=== PATIENT | female | born 1950 | race Caucasian/White ===

== ENCOUNTER 2018-12-04 12:11 | Emergency (ER) | payer MEDICARE, OTHER, SELFPAY ==
[2018-12-04 12:14] VITALS: BP 160/85; PULSE 63; RESP 18; TEMP 36.6; O2SAT 98; BMI 23.8
--- NOTE | 2018-12-04 12:27 | CT_ITS ---
STUDY: CT ABDOMEN AND PELVIS WITHOUT CONTRAST REASON FOR EXAM: Female, 68 years old. Left lower quadrant pain. RADIATION DOSAGE (If Supplied By Facility): CTDIvol = ( 6.10 ) mGy, DLP = ( 274.15 ) mGycm TECHNIQUE: Transaxial images were obtained from the dome of the diaphragm to the symphysis pubis without oral contrast, and without intravenous contrast. Sagittal and coronal images were reconstructed. Individualized dose optimization techniques were used for this CT. COMPARISON: Comparison is made with prior study dated October 05, 2012. FINDINGS: Mild degree of increased markings at the lung bases suggest some mild bibasilar atelectasis. The visualized portions of the heart are within normal limits. Normal liver. Normal gallbladder and extrahepatic biliary system. Normal spleen. Normal pancreas. There is a small, circumscribed, smooth, low attenuation left adrenal mass, consistent with an adrenal adenoma. This measures 9.6 mm. This is unchanged. Normal right adrenal gland. Normal right kidney. Mild degree of left perinephric stranding. There is a small hiatal hernia. Normal small intestine. There is diverticulosis, with thickening of the colon wall, and pericolonic inflammation changes consistent with acute diverticulitis. The appendix is visualized and appears normal. There is scattered atherosclerotic calcification of the abdominal aorta, without a demonstrated aneurysm. Normal inferior vena cava. Normal retroperitoneum. Normal urinary bladder. Normal abdominal wall. Normal osseous structures. CT/Abdomen/Pelvis without Cont IMPRESSION: Findings suggestive of a mild degree of sigmoid diverticulitis without complication. Stable small left adrenal adenoma. Electronically Signed: Saroj Krishna, at 13:18 EDT , Service support ,
--- NOTE | 2018-12-04 12:28 | ED.VISSUMM ---
- ER Visit Summary Date of Service: 12/04/18 Chief Complaint: Nausea and vomiting History of Present Illness: The patient is a 68 F who presents with nausea and vomiting. Started this morning. She was diagnosed with acute diverticulitis clinically by her PCP 3 days ago. She was started on Augmentin. She states that her pain is improving but she developed this nausea and vomiting along with a headache today. She denies having a fever. No urinary symptoms or diarrhea. Nothing for the nausea or vomiting this morning. Physical Examination: Vital signs reviewed. HEENT exam unremarkable. Heart is regular rate and rhythm without murmurs. Lungs are clear to auscultation. Abdomen is soft and nontender. Extremities reveal no edema. Skin exam normal. Neurologic exam normal. Test Results: Laboratory studies unremarkable except for glucose of 128. CAT scan of the abdomen and pelvis reveals mild acute diverticulitis without any complications. Emergency Department Course and Treatment: Patient feels better except for a slight headache. I gave her Toradol for this. She was given saline and Zofran. Her diverticulitis is uncomplicated. She does not have a leukocytosis and her pain is improving. I discussed with her about the possibility of her Augmentin causing her nausea and vomiting but she states she has had this 2 other times in the past. She would rather continue the course with this and finish up the last 7 days. She states that she has something already at home for nausea and vomiting and just wanted to make sure that nothing was complicated with her diverticulitis. She will be discharged to continue her home medications and will follow up with her PCP Treatment Plan: [] Disposition: Discharge Impression: Diverticulitis, nausea and vomiting This note was generated with [employer] software. It may contain incorrect words, spelling, and punctuation that were not noted in review of the chart prior to signing ED Disposition - Plan for ED Patient: Referrals: Anders Peterson MD [Primary Care Provider] -
[2018-12-04] MEDS: 0.9% Normal Saline 1,000 ML 1000 ML IV (12:42)
[2018-12-04] MEDS: Ondansetron 4 MG/2 ML Vial IV (12:43)
[2018-12-04 12:44] LABS: Absolute Lymphocyte Count 1.18 X10^3/uL (0.83-4.51); Absolute Neutrophil Count 4.5 X10^3/uL (2.0-7.7); Basophil# 0.03 X10^3/uL; Basophil% 0.5 % (0-1); Hematocrit 43.4 % (37-47); Hemoglobin 14.5 g/dL (12.0-15.0); Lymphocyte # 1.18 X10^3/ul (4.0); Lymphocyte % 19.9 % (19-41); Mean Corp Hgb Conc 33.4 g/dL (32-36); Mean Corpuscular Volume 92.7 fL (81-99); Monocyte% 3.4 % (0-10); NRBC Flagged by Analyzer 0 % (0-5); Neutrophil # 4.49 X10^3/uL (2.7-7.7); Neutrophil % 75.7 % (47-70); Platelet Count 362 K/mm3 (150-450); RBC Distribution Width CV 11.5 % (11.6-14.6); RBC Distribution Width SD 39.2 fl (35.1-43.9); Red Blood Count 4.68 M/mm3 (4.2-5.4); White Blood Count 5.9 K/mm3 (4.4-11.0)
[2018-12-04 13:01] LABS: ALB/GLOB Ratio 0.8 RATIO (0.9-2.4); AST(SGOT) 23 U/L (15-37); Alanine Aminotransfer ALT/SGPT 25 U/L (13-56); Albumin, Serum 3.5 g/dL (3.2-5.0); Alkaline Phosphatase 21 U/L (45-117); Anion Gap 6 (5-15); BUN 15 mg/dL (7-18); BUN/Creat Ratio 17.6 RATIO (10-20); Calcium,Total 9.6 mg/dL (8.5-10.1); Chloride 105 mmol/L (98-107); Creatinine, Serum 0.85 mg/dL (0.55-1.02); EST Glomerular Filtration Rate 70 mL/min (>60); Est Glom Filt Rate - Afr Amer 85 mL/min (>60); Estimated Creatinine Clearance 46.47 ml/min; Globulin 4.3 g/dL (2.2-4.2); Glucose 128 mg/dL (74-106); Lipase 74 U/L (73-393); Potassium 3.9 mmol/L (3.5-5.1); Protein, Total 7.8 g/dL (6.4-8.2); Sodium Level 139 mmol/L (136-145)
--- NOTE | 2018-12-04 14:15 | ED.DEP ---
ED Disposition - Plan for ED Patient: Disposition: Home or Assisted Living Instructions: VOMITING (4y-Adult) Referrals: Anders Peterson MD [Primary Care Provider] -
[2018-12-04] MEDS: Ketorolac 30 MG/ML Syringe IV (14:26)
[2018-12-04 14:29] VITALS: BP 141/72; PULSE 61; RESP 16; TEMP 37.2; O2SAT 98
== END 2018-12-04 14:52 | disposition home or self-care (01) ==
PROVIDERS: Emergency Provider Emergency Medicine; Family Provider Family Medicine; PCP Family Medicine
DX: K57.92 Diverticulitis of intestine, part unspecified, without perforation or abscess without bleeding (principal); R51 Headache
CPT/HCPCS: 74176; 80053; 83690; 85025; 96361; 96374; 96375; 99284; J7030; A4216; J2405

== ENCOUNTER → 2018-12-29 10:40 | Outpatient (CLI) | payer MEDICARE, OTHER, SELFPAY ==
[2018-12-04 12:14] VITALS: BMI 23.8
== END ==
PROVIDERS: Family Provider Family Medicine; PCP Family Medicine; Referring Provider Family Medicine; Visit Provider Family Medicine
DX: M10.9 Gout, unspecified (principal)
CPT/HCPCS: 36415; 84550